=== PATIENT | female | born 2000 | race Caucasian/White ===

== ENCOUNTER 2020-10-21 21:57 | Emergency (ER) | payer BC ==
--- NOTE | 2020-10-21 22:31 | EDM.PDOC ---
ED HPI GENERAL MEDICAL PROBLEM - General Chief Complaint: General Stated Complaint: bleeding/?prolapsed uterus Time Seen by Provider: 10/21/20 22:31 Source of Information: Reports: Patient History Limitations: Reports: No Limitations - History of Present Illness INITIAL COMMENTS - FREE TEXT/NARRATIVE: Sydnie is a 20 year old female with PMH of MS, who presents to the ED with c/o "abnormal bulge from vagina." She reports she was having intercourse around 9 pm. [place] was somewhat painful. Reports afterward she took a picture of her vagina and it had a large "bulge." She reports she tried to push it back in but she couldn't. She reports she did have small amount of vaginal bleeding following intercourse. LMP was 10/13/2020. Has not urinated since but feels she may need to. She denies any issues prior to intercourse. No other symptoms. Onset: Today, Sudden Onset Date: 10/21/20 Onset Time: 21:00 Duration: Improving Location: Reports: Other (vagina) Quality: Reports: Ache Severity: Mild Associated Symptoms: Reports: No Other Symptoms Lower Vaginal Pain Score (Numeric/FACES): 5 - Related Data Allergies Allergy/AdvReac Type Severity Reaction Status Date / Time No Known Allergies Allergy Verified 10/21/20 22:34 Home Meds: Home Meds Acyclovir 1 tab PO BID 10/21/20 [History] Levothyroxine 75 mcg PO ACBREAKFAST 10/21/20 [History] Sertraline [Zoloft] 100 mg PO DAILY 10/21/20 [History] Past Medical History Neurological History: Reports: MS - Infectious Disease History Infectious Disease History: Reports: MRSA Social & Family History - Family History Family Medical History: No Pertinent Family History - Tobacco Use Tobacco Use Status *Q: Never Tobacco User - Caffeine Use Caffeine Use: Reports: Soda - Alcohol Use Alcohol Use Frequency: Socially - Recreational Drug Use Recreational Drug Use: No - Sexual History Sexual History: Reports: Vaginal [place] ED ROS GENERAL - Review of Systems Review Of Systems: Comprehensive ROS is negative, except as noted in HPI. ED EXAM, GENERAL - Physical Exam Exam: See Below Exam Limited By: No Limitations General Appearance: Alert, WD/WN, No Apparent Distress (Female) Exam: Normal Speculum Exam, Normal Bimanual Exam, Other (left clitoris with large amount of swelling, right clitoris with moderate amount of swelling, no prolapse noted) Course - Vital Signs Last Recorded V/S: Last Vital Signs Temp 97.7 F 10/21/20 21:57 Pulse 103 H 10/21/20 21:57 Resp 18 10/21/20 21:57 BP 128/87 10/21/20 21:57 Pulse Ox 96 10/21/20 21:57 Departure - Departure Time of Disposition: 22:45 Disposition: Home, Self-Care 01 Condition: Good Clinical Impression: Clitoral irritation - Discharge Information *PRESCRIPTION DRUG MONITORING PROGRAM REVIEWED*: Not Applicable *COPY OF PRESCRIPTION DRUG MONITORING REPORT IN PATIENT IVÁN: Not Applicable Referrals: Bernardo Marin MD [Primary Care Provider] - Forms: ED Department Discharge Additional Instructions: - Cool compress to area as needed for comfort - No intercourse until symptoms improve - Tylenol or ibuprofen as needed for discomfort - Follow up 1 week for recheck once swelling has resolved Sepsis Event Note (ED) - Focused Exam Vital Signs: Vital Signs Temp Pulse Resp BP Pulse Ox 10/21/20 21:57 97.7 F 103 H 18 128/87 96 - Problem List & Annotations (1) Clitoral irritation SNOMED Code(s): 102500806 Code(s): N90.89 - OT NONINFLAMMATORY DISORDERS OF VULVA AND PERINEUM Status: Acute - Assessment/Plan Assessment:: Clitoral irritation and swelling Plan: As above.
== END 2020-10-21 22:49 | disposition home or self-care (01) ==
LOC: CC.ED 21:57 → SUPCPDRO 21:57 → CC.ED 22:49
DX: N89.8 Other specified noninflammatory disorders of vagina (principal); G35 Multiple sclerosis; Z79.899 Other long term (current) drug therapy
CPT/HCPCS: 99283